=== PATIENT | male | born 1955 | race Caucasian/White ===

== ENCOUNTER 2016-05-05 15:59 | Inpatient (IN) | payer MEDICARE ==
[2016-05-05] MEDS ORDERED: Milk Of Magnesia 30 ML UDCUP PO PRN (16:52)
[2016-05-05] MEDS ORDERED: Acetaminophen 325 MG TAB PO PRN (16:52)
[2016-05-05] MEDS ORDERED: HYDROcodone/Acetaminophen 10/325 mg Tablet PO PRN (16:52)
[2016-05-05] MEDS ORDERED: Ondansetron ODT 4 MG TAB PO PRN (16:52)
[2016-05-05] MEDS ORDERED: Bisacodyl 10 MG SUPP PR PRN (16:52)
[2016-05-05] MEDS ORDERED: Zolpidem Tartrate 5 MG TAB PO PRN (16:52)
[2016-05-05] MEDS ORDERED: HYDROcodone/Acetaminophen 5/325 mg Tablet PO PRN (16:52)
[2016-05-05 17:03] VITALS: BMI 32.2
[2016-05-05] MEDS ORDERED: Dextrose 5% in Water 1,000 ML IV PRN (17:22)
[2016-05-05] MEDS ORDERED: Dextrose 50% Abboject 50 ML SYRINGE SLOW IVP PRN (17:22)
[2016-05-05] MEDS ORDERED: HumaLOG 300 UNITS/3 ML VIAL SC PRN ×2 (17:22)
[2016-05-05 17:47] LABS: #Basophils 0.2 thou/uL (0.0-0.2); #Eosinphils 0.2 thou/uL (0.0-0.7); #Lymphocytes 1.9 thou/uL (1.20-3.40); #Monocytes 1.2 thou/uL (0.11-0.59); #Neutrophils 10.3 thou/uL (1.40-6.50); %Basophils 1.4 % (0.0-1.0); %Eosinophils 1.4 % (0.0-10.0); %Lymphocytes 13.8 % (21.0-51.0); %Monocytes 8.7 % (0.0-10.0); %Neutrophils 74.7 % (42.0-75.0); Hemoglobin 15.7 g/dL (14.0-18.0); Mean Corpuscular HGB CONC 31.3 g/dL (32.0-36.0); Mean Corpuscular Hemoglobin 30.1 pg (27.0-31.0); Mean Corpuscular Volume 96.4 fl (80.0-94.0); Mean Platelet Volume 8.2 fL (7.4-10.4); Platelet Count 289 thou/uL (130-400); RBC Distribution Width 13.9 % (11.5-14.5); White Blood Cell (WBC) Count 13.7 thou/uL (4.8-10.8)
[2016-05-05 17:55] LABS: ALT (SGPT) 30 U/L (0-55); AST (SGOT) 32 U/L (5-34); Albumin 4.2 g/dL (3.4-4.8); Alkaline Phosphatase 76 U/L (40-150); Anion Gap 14 mmol/L (10-20); BUN (Urea Nitrogen) 23 mg/dL (8.4-25.7); Bilirubin, Total 0.6 mg/dL (0.2-1.2); Calc. Creatinine Clearance 46 mL/min (70-130); Calcium 10.1 mg/dL (7.8-10.44); Carbon Dioxide 27 mmol/L (23-31); Chloride 103 mmol/L (98-107); Estimated GFR-MDRD 34; Globulin 3.9 g/dL (2.4-3.5); Glucose 97 mg/dL (80-115); Potassium 5.3 mmol/L (3.5-5.1); Protein, Total 8.1 g/dL (5.8-8.1); Sodium 139 mmol/L (136-145)
[2016-05-05] MEDS ORDERED: Piperacillin/Tazobactam 3.375 GM in Sodium Chloride 0.9% 100 ML IVPB SCH (18:00)
[2016-05-05] MEDS: Piperacillin/Tazobactam 3.375 GM in Sodium Chloride 0.9% 100 ML IVPB SCH (20:22)
[2016-05-05] MEDS: Allopurinol 100 MG TAB PO SCH (20:30)
[2016-05-05] MEDS: Vancomycin HCl 1 GM in Sodium Chloride 0.9% 250 ML 250 ML IVPB SCH (21:09)
[2016-05-06] MEDS: Piperacillin/Tazobactam 3.375 GM in Sodium Chloride 0.9% 100 ML IVPB SCH ×4 (03:04→21:12)
[2016-05-06 05:16] LABS: #Basophils 0.2 thou/uL (0.0-0.2); #Eosinphils 0.3 thou/uL (0.0-0.7); #Lymphocytes 1.8 thou/uL (1.20-3.40); #Monocytes 1.1 thou/uL (0.11-0.59); #Neutrophils 8.1 thou/uL (1.40-6.50); %Basophils 1.5 % (0.0-1.0); %Eosinophils 2.2 % (0.0-10.0); %Lymphocytes 15.8 % (21.0-51.0); %Monocytes 9.3 % (0.0-10.0); %Neutrophils 71.2 % (42.0-75.0); Hemoglobin 14.7 g/dL (14.0-18.0); Mean Corpuscular HGB CONC 30.9 g/dL (32.0-36.0); Mean Corpuscular Hemoglobin 29.7 pg (27.0-31.0); Mean Corpuscular Volume 96.2 fl (80.0-94.0); Mean Platelet Volume 7.7 fL (7.4-10.4); Platelet Count 271 thou/uL (130-400); RBC Distribution Width 14.4 % (11.5-14.5); Red Blood Cell (RBC) Count 4.96 mill/uL (4.70-6.10); White Blood Cell (WBC) Count 11.4 thou/uL (4.8-10.8)
[2016-05-06 05:21] LABS: Anion Gap 13 mmol/L (10-20); BUN (Urea Nitrogen) 22 mg/dL (8.4-25.7); Calc. Creatinine Clearance 56 mL/min (70-130); Calcium 9.8 mg/dL (7.8-10.44); Carbon Dioxide 27 mmol/L (23-31); Chloride 103 mmol/L (98-107); Estimated GFR-MDRD 43; Glucose 97 mg/dL (80-115); Potassium 5.1 mmol/L (3.5-5.1); Sodium 138 mmol/L (136-145)
[2016-05-06] MEDS: Enoxaparin Sodium 40 MG/0.4 ML SYRINGE SC SCH (06:00)
[2016-05-06] MEDS ORDERED: FLU VACC QS2016-17 36MOS UP/PF 0.5 ML SYRINGE IM ONE (09:00)
[2016-05-06] MEDS: Allopurinol 100 MG TAB PO SCH ×2 (09:14→21:13)
[2016-05-06] MEDS: Lisinopril 20 MG TAB PO SCH (09:16)
[2016-05-06] MEDS: Vancomycin HCl 1 GM in Sodium Chloride 0.9% 250 ML 250 ML IVPB SCH ×2 (09:19→21:39)
[2016-05-06] MEDS: DICLOFENAC SODIUM 100 MG PO SCH (13:34)
[2016-05-07] MEDS: Piperacillin/Tazobactam 3.375 GM in Sodium Chloride 0.9% 100 ML IVPB SCH ×4 (02:56→20:03)
[2016-05-07] MEDS: Enoxaparin Sodium 40 MG/0.4 ML SYRINGE SC SCH (05:23)
[2016-05-07] MEDS ORDERED: Bacitracin Zinc 1 Packet ONE ×2 (07:35)
[2016-05-07 08:34] LABS: Vancomycin, Trough 15.9 ug/mL
[2016-05-07] MEDS: Allopurinol 100 MG TAB PO SCH ×2 (09:44→21:22)
[2016-05-07] MEDS: Lisinopril 20 MG TAB PO SCH (09:46)
[2016-05-07] MEDS: DICLOFENAC SODIUM 100 MG PO SCH (09:47)
[2016-05-07] MEDS: Vancomycin HCl 1 GM in Sodium Chloride 0.9% 250 ML 250 ML IVPB SCH ×2 (10:24→21:23)
--- NOTE | 2016-05-07 19:11 | OP ---
DATE OF SURGERY: 05/07/2016 PRIMARY CARE PHYSICIAN: Sabrina Santana D.O. PREOPERATIVE DIAGNOSES: Right knee cellulitis with abscess. POSTOPERATIVE DIAGNOSIS: Right knee cellulitis with abscess. PROCEDURE: Incision and drainage of abscess. Procedure Note: Time out protocol was performed prior to initiating the procedure. The area was pr epped and draped in the usual sterile fashion. The area was anesthetized with 2% lidocaine without epinephrine. Linear incision along the local skin line was made and purulent material expressed. T he abscess was explored. No pockets were noted. Bleeding was minimal. No packing done. The patie nt tolerated the procedure. Standard postprocedure care given.
--- NOTE | 2016-05-07 19:15 | PRG ---
DATE OF SERVICE: 05/07/2016 PRIMARY CARE PHYSICIAN: Dr. Santana. SUBJECTIVE: The patient is complaining of right knee pain, still has tenderness on the anterior knee; however, noticed less swelling and redness, still has little purulent drainage coming from a small opening. Patient has a 4 cm fluctuant purulent fluid mass on the superficial area of the right knee. No fever, no chills. OBJECTIVE: VITAL SIGNS: Blood pressure of 131/64, pulse of 54, respiratory rate of 18, and 02 sat 98% on room air. Temperature of 98.1. GENERAL: Patient is alert, oriented, not in respiratory distress. HEENT: Normocephalic, atraumatic. Pupils equally reactive to light. NECK: Supple. Negative for lymphadenopathies. CHEST AND LUNGS: Symmetrical expansion. Clear to auscultation. HEART: Regular rate and rhythm. Negative for murmur. ABDOMEN: Flat, soft, nontender, normoactive bowel sounds. EXTREMITIES: Right knee has an area of erythema, measuring about 6 x 10 cm, purulent filled mass measuring about 4 cm, very tender. Good range of motion. Negative for Homans' sign. LABORATORY DATA: Reviewed. ASSESSMENT: 1. Right knee cellulitis with abscess secondary to insect bite. 2. Hypertension. 3. Diabetes, on sliding scale. 4. Hyperlipidemia. 5. Gastroesophageal reflux disease. 6. Morbid obesity. PLAN: 1. Perform I&D, indication abscess. 2. Continue IV antibiotics. 3. Anticipate discharge within the next 2 days. 4. Adjust antibiotics depending on the results of the wound culture. VER[place]
[2016-05-08] MEDS: Piperacillin/Tazobactam 3.375 GM in Sodium Chloride 0.9% 100 ML IVPB SCH ×4 (02:52→20:04)
[2016-05-08] MEDS: Enoxaparin Sodium 40 MG/0.4 ML SYRINGE SC SCH (06:04)
[2016-05-08] MEDS: Allopurinol 100 MG TAB PO SCH ×2 (09:22→21:33)
[2016-05-08] MEDS: Lisinopril 20 MG TAB PO SCH (09:24)
[2016-05-08] MEDS: DICLOFENAC SODIUM 100 MG PO SCH (09:25)
[2016-05-08] MEDS: Vancomycin HCl 1 GM in Sodium Chloride 0.9% 250 ML 250 ML IVPB SCH ×2 (09:55→21:34)
[2016-05-08 20:30] LABS: Vancomycin, Trough 21.5 ug/mL
--- NOTE | 2016-05-08 21:35 | PRG ---
DATE OF SERVICE: 05/08/2016 PRIMARY CARE PHYSICIAN: Sabrina Santana D.O. ATTENDING PHYSICIAN: Sloane Malave M.D. SUBJECTIVE: The patient reports improved right knee pain, some localized tenderness, no fever, no chills, the patient is anticipating to go home this afternoon. OBJECTIVE: VITAL SIGNS: Blood pressure of 126/72, temperature of 97.8, pulse of 50, respiratory rate of 18, O2 sat 99% at room air. GENERAL: The patient is alert, oriented, not in respiratory distress. HEENT: Normocephalic, atraumatic. Pupils equally reactive to light. NECK: Supple. Negative for lymphadenopathy. CHEST AND LUNGS: Symmetrical expansion. Clear to auscultation. HEART: Regular rate and rhythm. EXTREMITIES: Right knee has less erythema, good range of motion, upon palpating noticed 3 small openings were purulent discharge came out. LABORATORY DATA: Reviewed. Wound cultures showing Staphylococcus aureus, pending sensitivities. ASSESSMENT AND PLAN: 1. Right knee cellulitis with abscess secondary to Staphylococcus aureus, status post I&D, postop day #1 still has small amount of purulent discharge from 3 small openings. No induration, no fluctuance noted, minimal tenderness. 2. Continue IV antibiotics, start warm water flushing 15 minutes 3 times a day. 3. Continue antibiotics, adjust medications depending on the sensitivities. 4. Hypertension, stable. 6. Diabetes on sliding scale, stable. 7. Hyperlipidemia. 8. Gastroesophageal reflux disease. 9. Morbid obesity. 10. Anticipate discharge in the next [address] [facility]
[2016-05-09] MEDS: Piperacillin/Tazobactam 3.375 GM in Sodium Chloride 0.9% 100 ML IVPB SCH ×4 (03:25→20:55)
[2016-05-09] MEDS: Enoxaparin Sodium 40 MG/0.4 ML SYRINGE SC SCH (05:55)
[2016-05-09 08:03] LABS: #Basophils 0.1 thou/uL (0.0-0.2); #Eosinphils 0.3 thou/uL (0.0-0.7); #Lymphocytes 2.5 thou/uL (1.20-3.40); #Monocytes 0.7 thou/uL (0.11-0.59); #Neutrophils 6.1 thou/uL (1.40-6.50); %Basophils 1.2 % (0.0-1.0); %Eosinophils 3.6 % (0.0-10.0); %Lymphocytes 25.4 % (21.0-51.0); %Monocytes 6.9 % (0.0-10.0); %Neutrophils 62.9 % (42.0-75.0); Hemoglobin 16.7 g/dL (14.0-18.0); Mean Corpuscular HGB CONC 32.9 g/dL (32.0-36.0); Mean Corpuscular Hemoglobin 31.6 pg (27.0-31.0); Mean Corpuscular Volume 96.2 fl (80.0-94.0); Mean Platelet Volume 7.4 fL (7.4-10.4); Platelet Count 320 thou/uL (130-400); RBC Distribution Width 13.7 % (11.5-14.5); Red Blood Cell (RBC) Count 5.28 mill/uL (4.70-6.10); White Blood Cell (WBC) Count 9.7 thou/uL (4.8-10.8)
[2016-05-09 08:17] LABS: ALT (SGPT) 24 U/L (0-55); AST (SGOT) 19 U/L (5-34); Alkaline Phosphatase 66 U/L (40-150); Anion Gap 14 mmol/L (10-20); BUN (Urea Nitrogen) 20 mg/dL (8.4-25.7); Bilirubin, Total 0.7 mg/dL (0.2-1.2); Calc. Creatinine Clearance 61 mL/min (70-130); Calcium 10.1 mg/dL (7.8-10.44); Carbon Dioxide 28 mmol/L (23-31); Chloride 103 mmol/L (98-107); Estimated GFR-MDRD 47; Globulin 3.6 g/dL (2.4-3.5); Glucose 109 mg/dL (80-115); Potassium 5.2 mmol/L (3.5-5.1); Protein, Total 7.6 g/dL (5.8-8.1); Sodium 140 mmol/L (136-145)
[2016-05-09] MEDS: Vancomycin HCl 1 GM in Sodium Chloride 0.9% 250 ML 250 ML IVPB SCH (08:55)
[2016-05-09] MEDS: Allopurinol 100 MG TAB PO SCH ×2 (08:59→20:53)
[2016-05-09] MEDS: DICLOFENAC SODIUM 100 MG PO SCH ×2 (09:00→13:00)
[2016-05-09] MEDS: Lisinopril 20 MG TAB PO SCH (09:00)
[2016-05-09 20:30] LABS: Vancomycin, Trough 26.7 ug/mL
[2016-05-10] MEDS: Piperacillin/Tazobactam 3.375 GM in Sodium Chloride 0.9% 100 ML IVPB SCH ×2 (03:10→08:53)
[2016-05-10] MEDS: Enoxaparin Sodium 40 MG/0.4 ML SYRINGE SC SCH (06:15)
[2016-05-10 06:24] VITALS: TEMP 97.7
[2016-05-10] MEDS: Vancomycin HCl 1 GM in Sodium Chloride 0.9% 250 ML 250 ML IVPB SCH (08:35)
[2016-05-10] MEDS: Allopurinol 100 MG TAB PO SCH (08:54)
[2016-05-10] MEDS: Lisinopril 20 MG TAB PO SCH (08:55)
[2016-05-10 08:56] VITALS: BP 126/72
[2016-05-10] MEDS: DICLOFENAC SODIUM 100 MG PO SCH (08:56)
--- NOTE | 2016-05-10 18:34 | DIS ---
DATE OF ADMISSION: 05/05/2016 DATE OF DISCHARGE: 05/10/2016 ADMISSION DIAGNOSES: Abscess and cellulitis to the right lower extremity. DISCHARGE DIAGNOSES: Abscess and cellulitis to the right lower extremity, methicillin-resistant Staphylococcus aureus. COMORBID DIAGNOSES: 1. Hypertension. 2. Ankylosing spondylitis. 3. Diet-controlled diabetes mellitus. 4. Stage 3 CKD ATTENDING PHYSICIAN: Sabrina Santana D.O. PROCEDURES PERFORMED: 1. Blood cultures x2 from the date of admission negative at 48 hours. 2. Wound culture growing methicillin-resistant Staphylococcus aureus on the date of discharge with sensitivities to doxycycline. 3. CBC from the date of admission with white count 13.7, down to 9.7 on the day prior to discharge. 4. Chemistry profile remarkable for improvement in creatinine from 1.99 on admission to 1.51 the day prior to discharge. 5. I&D, Dr. Malave, 05/08/16 HISTORY AND PHYSICAL EXAMINATION: Please see documented report from the date of admission. HOSPITAL COURSE: Mr. Jarrell is a 60-year-old male with past medical history of diet-controlled diabetes mellitus, ankylosing spondylitis, stage 3 CKD and hypertension who presented to the outpatient setting, status post ant bite. He was treated with a gram of Rocephin intramuscularly in the office and placed on Bactrim DS 1 p.o. b.i.d. as it looked to be infected. The patient returned to the clinic in approximately 48 hours with expanding erythema, swelling to the distal aspect of the leg, increasing induration in the area, located just below the knee in the right lower extremity. He was admitted and placed on IV antibiotic therapy, Zosyn and vancomycin. An area was outlined to show progress. The patient was given pain control. His wound was elevated and warm compresses were administered 3 times daily. Throughout his hospital stay, the distal redness and edema, improved. The patient's vancomycin troughs were monitored and dose adjusted according to protocol. On 05/08, procedure was performed with drainage of purulent material from the area of induration. This was cultured and subsequently grew out methicillin-resistant Staph aureus with sensitivities to the failed outpatient Bactrim therapy, clindamycin and doxycycline. The patient has had some intermittent diarrhea throughout his hospital course, but nothing of notable attention. This did not cause any discomfort. Therefore, the patient now could be discharged on oral doxycycline therapy twice daily for 10 days and will add a probiotic of Floranex 1 gram daily. He will see me in clinic in approximately 3 days for reevaluation. He has been given instructions to return for fever, increased redness, increased swelling, pain or drainage from the site. He will still apply warm compresses 3 times daily for 15 minutes to help resolve healing and elevate the extremity. Regarding his diabetes, the patient was placed on a diabetic diet, Accu-Cheks were monitored. He was placed on an insulin lispro sliding scale mild and bedtime protocol during his hospitalization. Regarding his hypertension, the patient was continued on his home antihypertensive regimen with his blood pressure stable throughout his hospitalization. No changes were made. On the date of discharge, the patient's temperature is 97.7, heart rate 53, blood pressure 126/72, respirations 18, O2 sat 99% on room air and blood pressure 147/67. He is alert and oriented x3, in no acute distress. His pupils were equal, round and reactive to light and accommodation with extraocular muscles intact. HEART: Regular rate and rhythm with no murmurs, clicks, rubs or gallops. LUNGS: Clear to auscultation bilaterally. No crackles or wheezes. ABDOMEN: Positive bowel sounds in all four quadrants. Soft, nontender and nondistended. EXTREMITIES: No cyanosis, clubbing or edema. The right lower extremity wound measures approximately half an inch in diameter with a couple of pores present with no fluctuance. Minimal surrounding edema, erythema and no induration seen. DISPOSITION: Discharged to home. CONDITION: Good. DISCHARGE MEDICATIONS: 1. Diclofenac ER 100 mg p.o. q.a.m. 2. Allopurinol 300 mg p.o. q.a.m. and 200 mg p.o. at bedtime. 3. Amlodipine 5 mg p.o. q. day. 4. Zestril 20 mg p.o. q.a.m. 5. Toprol XL 50 mg p.o. q. day. 6. Crestor 10 mg p.o. q.p.m. 7. Doxycycline 100 mg p.o. b.i.d. x10 days. 8. Floranex 1 gram p.o. q. day x10 days. FOLLOWUP: Will be with Dr. Sabrina Santana in my clinic on Monday. [facility]
== END 2016-05-10 10:30 | disposition home or self-care (01) | DRG 603 ==
LOC: BURMED 16:00
PROVIDERS: ADMIT Family Medicine; ATTEND Family Medicine
PROC: 0H9KXZZ Drainage of Right Lower Leg Skin, External Approach (ICD-10-PCS; principal; 2016-05-07)
DX: L03.115 Cellulitis of right lower limb (principal); E11.22 Type 2 diabetes mellitus with diabetic chronic kidney disease; N18.3 Chronic kidney disease, stage 3 (moderate); L02.415 Cutaneous abscess of right lower limb; W57.XXXA Bitten or stung by nonvenomous insect and other nonvenomous arthropods, initial encounter; B95.62 Methicillin resistant Staphylococcus aureus infection as the cause of diseases classified elsewhere; I12.9 Hypertensive chronic kidney disease with stage 1 through stage 4 chronic kidney disease, or unspecified chronic kidney disease; E78.5 Hyperlipidemia, unspecified; E66.01 Morbid (severe) obesity due to excess calories; K21.9 Gastro-esophageal reflux disease without esophagitis; Z68.32 Body mass index [BMI] 32.0-32.9, adult
CPT/HCPCS: 36415; 36416; 80048; 80053; 80202; 83605; 85025; 87040; 87070; 87077; 87186; 87205; A4216; J1650; J2001; J2543; J3370; J7050

== ENCOUNTER 2016-08-31 05:36 | Outpatient (CLI) | payer MEDICARE ==
[2016-08-31 06:07] LABS: Bilirubin Negative (Negative); Blood, Urine Negative (Negative); Clarity Clear (Clear); Glucose, Urine (Dipstick) Negative (Negative); Leukocyte Negative (Negative); Nitrite Negative (Negative); Protein, Urine (Dipstick) Negative (Neg-Trace); Urobilinogen 0.2 mg/dL (0.2-1.0)
[2016-08-31 06:13] LABS: Bacteria/HPF Rare-Few HPF (None Seen); RBC/HPF 0-3 HPF (0-3); Squamous Epithelial 0-3 HPF (0-3); WBC/HPF 0-3 HPF (0-3)
[2016-08-31 06:27] LABS: Anion Gap 15 mmol/L (10-20); BUN (Urea Nitrogen) 17 mg/dL (8.4-25.7); Calc. Creatinine Clearance 0 mL/min (70-130); Calcium 9.5 mg/dL (7.8-10.44); Carbon Dioxide 24 mmol/L (23-31); Chloride 107 mmol/L (98-107); Estimated GFR-MDRD 62; Glucose 132 mg/dL (80-115); Potassium 4.4 mmol/L (3.5-5.1); Sodium 142 mmol/L (136-145)
== END 2016-08-31 05:37 | disposition home or self-care (01) ==
LOC: BURLAB 05:36
PROVIDERS: ATTEND Urology
DX: Z12.5 Encounter for screening for malignant neoplasm of prostate (principal); N18.9 Chronic kidney disease, unspecified; N40.1 Benign prostatic hyperplasia with lower urinary tract symptoms
CPT/HCPCS: 36415; 80048; 81001; 87086; G0103

== ENCOUNTER 2016-11-09 10:15 | Outpatient (CLI) | payer MEDICARE ==
[2016-11-09 12:00] LABS: #Basophils 0.1 thou/uL (0.0-0.2); #Eosinphils 0.2 thou/uL (0.0-0.7); #Lymphocytes 2.4 thou/uL (1.20-3.40); #Monocytes 0.8 thou/uL (0.11-0.59); %Basophils 0.9 % (0.0-1.0); %Eosinophils 1.7 % (0.0-10.0); %Lymphocytes 23.1 % (21.0-51.0); %Monocytes 7.6 % (0.0-10.0); %Neutrophils 66.7 % (42.0-75.0); Hemoglobin 16.5 g/dL (14.0-18.0); Mean Corpuscular HGB CONC 31.1 g/dL (32.0-36.0); Mean Corpuscular Hemoglobin 30.4 pg (27.0-31.0); Mean Corpuscular Volume 97.9 fl (80.0-94.0); Mean Platelet Volume 8.4 fL (7.4-10.4); Platelet Count 228 thou/uL (130-400); RBC Distribution Width 14.1 % (11.5-14.5); Red Blood Cell (RBC) Count 5.42 mill/uL (4.70-6.10); White Blood Cell (WBC) Count 10.5 thou/uL (4.8-10.8)
[2016-11-09 12:54] LABS: ALT (SGPT) 31 U/L (8-55); AST (SGOT) 21 U/L (5-34); Albumin 4.6 g/dL (3.4-4.8); Alkaline Phosphatase 74 U/L (40-150); Anion Gap 18 mmol/L (10-20); BUN (Urea Nitrogen) 24 mg/dL (8.4-25.7); Bilirubin, Total 1.1 mg/dL (0.2-1.2); Calc. Creatinine Clearance 0 mL/min (70-130); Calcium 9.9 mg/dL (7.8-10.44); Carbon Dioxide 25 mmol/L (23-31); Cardiac Risk 3.9 (Less than 4.5); Chloride 103 mmol/L (98-107); Cholesterol 132 mg/dl (< 200 Desired); Estimated GFR-MDRD 59; Globulin 2.6 g/dL (2.4-3.5); Glucose 109 mg/dL (80-115); HDL Cholesterol 34 mg/dL (>60 Neg Risk); Hemoglobin A1c 6.2 % (4.0-6.0); LDL Cholesterol, Calculated 77 mg/dL; Potassium 4.9 mmol/L (3.5-5.1); Protein, Total 7.2 g/dL (5.8-8.1); Sodium 141 mmol/L (136-145); Triglycerides 104 mg/dL (Less than 150)
[2016-11-09 17:54] LABS: Creatinine, Urine 146.47 mg/dL (63-166); Microalbumin Urine Less than 1.0 mg/dL (0.5-50.0); Microalbumin/Creat Ratio 6.8 mg/g (Less than 30)
== END 2016-11-09 10:16 | disposition home or self-care (01) ==
LOC: HPCALD 10:15
PROVIDERS: ATTEND Family Medicine
DX: E11.9 Type 2 diabetes mellitus without complications (principal); I10 Essential (primary) hypertension
CPT/HCPCS: 80053; 80061; 82043; 83036; 84443; 85025

== ENCOUNTER 2018-04-12 19:02 | Emergency (ER) | payer MEDICARE ==
[2018-04-12] MEDS ORDERED: Fluorescein Opthalmic Strip ONE (19:21)
== END 2018-04-12 19:50 | disposition home or self-care (01) ==
LOC: BURERS 19:02
DX: S05.02XA Injury of conjunctiva and corneal abrasion without foreign body, left eye, initial encounter (principal); M06.9 Rheumatoid arthritis, unspecified; X58.XXXA Exposure to other specified factors, initial encounter
CPT/HCPCS: 99283

== ENCOUNTER 2019-01-03 08:16 | Outpatient (CLI) | payer MEDICARE ==
--- NOTE | 2019-01-03 16:56 | RAD ---
CERVICAL SPINE TWO VIEWS: 01/03/19 AP and lateral views are provided. There is fusion of the cervical spine at all levels consistent wit h the history of ankylosing spondylitis. No acute fracture was appreciated. The soft tissues are norm al in thickness. IMPRESSION: Cervical fusion without focal findings of concern. POS: HOME
--- NOTE | 2019-01-03 16:59 | RAD ---
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 There is wedging of one of the vertebra near the thoracolumbar junction, however, looking back at an 01/08/13 chest film, it wa s present previously. The degree of wedging has really not advanced over the years. No acute fracture s, dislocation or other acute change was appreciated. IMPRESSION: Ankylosing spondylitis with no acute findings. Wedged vertebra near the thoracolumbar junction that h as not changed over the last six years. POS: HOME
--- NOTE | 2019-01-03 17:01 | RAD ---
LUMBAR SPINE THREE VIEWS: 01/03/19 Mild scoliosis convexed right is present. There is anterior wedging of the L1 vertebra, but this is not acute and has been present for some years. No acute fracture was appreciated. There is fusion at multiple levels as expected. The SI joints are obliterated. IMPRESSION: Typical findings of ankylosing spondylitis without acute change. POS: HOME
--- NOTE | 2019-01-03 17:02 | RAD ---
SI JOINTS 01/03/19 The sacroiliac joints are fused bilaterally consistent with the clinical history of ankylosing spondy litis. There is no undue sclerosis in the region at the moment. The visible portions of the bony pelv is appear intact. IMPRESSION: Fusion of each SI joint. POS: HOME
== END 2019-01-03 08:17 | disposition home or self-care (01) ==
LOC: BURRAD 08:16
PROVIDERS: ATTEND Internal Medicine Rheumatology
DX: M46.1 Sacroiliitis, not elsewhere classified (principal); M54.2 Cervicalgia; M54.5 Low back pain; M54.6 Pain in thoracic spine; M45.6 Ankylosing spondylitis lumbar region; M45.4 Ankylosing spondylitis of thoracic region; Z98.1 Arthrodesis status
CPT/HCPCS: 72040; 72072; 72100; 72202

== ENCOUNTER 2019-12-07 13:03 | Emergency (ER) | payer MEDICARE ==
[2019-12-07] MEDS ORDERED: Sulfameth/Trimethoprim DS 800-160mg TAB ONE (13:23)
[2019-12-07] MEDS ORDERED: Boostrix 0.5 ML VIAL ONE (13:24)
== END 2019-12-07 13:35 | disposition home or self-care (01) ==
LOC: BURERS 13:03
DX: L03.113 Cellulitis of right upper limb (principal); M06.9 Rheumatoid arthritis, unspecified; Z87.891 Personal history of nicotine dependence; Z79.899 Other long term (current) drug therapy
CPT/HCPCS: 90471; 90715

== ENCOUNTER 2021-03-03 08:52 | Emergency (ER) | payer MEDICARE ==
[2021-03-03] MEDS ORDERED: Aspirin Chewable 81 MG TAB ONE (09:58)
[2021-03-03 10:43] LABS: #Basophils 0.1 thou/uL (0.0-0.2); #Eosinphils 0.2 thou/uL (0.0-0.7); #Lymphocytes 1.8 thou/uL (1.20-3.40); #Monocytes 0.6 thou/uL (0.11-0.59); #Neutrophils 6.1 thou/uL (1.40-6.50); %Basophils 1.4 % (0.0-1.0); %Eosinophils 1.7 % (0.0-10.0); %Lymphocytes 20.8 % (21.0-51.0); %Monocytes 6.5 % (0.0-10.0); %Neutrophils 69.6 % (42.0-75.0); Hemoglobin 16.8 g/dL (14.0-18.0); Mean Corpuscular HGB CONC 32.2 g/dL (32.0-36.0); Mean Corpuscular Hemoglobin 30.3 pg (27.0-31.0); Mean Corpuscular Volume 94.2 fL (78.0-98.0); Mean Platelet Volume 9.5 fL (7.4-10.4); Platelet Count 203 thou/uL (130-400); RBC Distribution Width 14.1 % (11.5-14.5); Red Blood Cell (RBC) Count 5.55 mill/uL (4.70-6.10); White Blood Cell (WBC) Count 8.8 thou/uL (4.8-10.8)
[2021-03-03 11:05] LABS: ALT (SGPT) 20 U/L (8-55); AST (SGOT) 17 U/L (5-34); Albumin 4.3 g/dL (3.4-4.8); Alkaline Phosphatase 60 U/L (40-110); Anion Gap 14 mmol/L (10-20); BUN (Urea Nitrogen) 9 mg/dL (8.4-25.7); Bilirubin, Total 0.4 mg/dL (0.2-1.2); Calc. Creatinine Clearance 0 mL/min (70-130); Calcium 9.6 mg/dL (7.8-10.44); Carbon Dioxide 25 mmol/L (23-31); Chloride 104 mmol/L (98-107); Globulin 2.3 g/dL (2.4-3.5); Glucose 110 mg/dL (80-115); Potassium 4.1 mmol/L (3.5-5.1); Protein, Total 6.6 g/dL (5.8-8.1); Sodium 139 mmol/L (136-145)
[2021-03-03 14:17] LABS: Troponin I Less than 0.010 ng/mL (< 0.028)
[2021-03-03 22:53] LABS: Troponin I Less than 0.010 ng/mL (< 0.028)
== END 2021-03-03 23:49 | disposition home or self-care (01) ==
LOC: BURERS 08:52
DX: R07.9 Chest pain, unspecified (principal); I12.9 Hypertensive chronic kidney disease with stage 1 through stage 4 chronic kidney disease, or unspecified chronic kidney disease; N18.9 Chronic kidney disease, unspecified; E11.22 Type 2 diabetes mellitus with diabetic chronic kidney disease; K21.9 Gastro-esophageal reflux disease without esophagitis; M10.9 Gout, unspecified; F17.220 Nicotine dependence, chewing tobacco, uncomplicated
CPT/HCPCS: 36415; 71045; 80053; 83880; 84484; 85025; 93005

== ENCOUNTER 2023-08-04 19:20 | Emergency (ER) | payer MEDICARE ==
[2023-08-04] MEDS ORDERED: Sulfameth/Trimethoprim DS 800-160mg TAB ONE (19:55)
== END 2023-08-04 20:05 | disposition home or self-care (01) ==
LOC: BURERS 19:20
DX: L03.114 Cellulitis of left upper limb (principal); I12.9 Hypertensive chronic kidney disease with stage 1 through stage 4 chronic kidney disease, or unspecified chronic kidney disease; E11.22 Type 2 diabetes mellitus with diabetic chronic kidney disease; N18.9 Chronic kidney disease, unspecified; M10.9 Gout, unspecified; M06.9 Rheumatoid arthritis, unspecified; Z79.899 Other long term (current) drug therapy; Z87.891 Personal history of nicotine dependence
CPT/HCPCS: 99283

== ENCOUNTER 2023-10-15 06:35 | Emergency (ER) | payer MEDICARE ==
[2023-10-15] MEDS ORDERED: Sulfameth/Trimethoprim DS 800-160mg TAB ONE (07:23)
== END 2023-10-15 07:18 | disposition home or self-care (01) ==
LOC: BURERS 06:35
DX: H60.12 Cellulitis of left external ear (principal); I12.9 Hypertensive chronic kidney disease with stage 1 through stage 4 chronic kidney disease, or unspecified chronic kidney disease; E11.22 Type 2 diabetes mellitus with diabetic chronic kidney disease; N18.9 Chronic kidney disease, unspecified; K21.9 Gastro-esophageal reflux disease without esophagitis; Z79.82 Long term (current) use of aspirin; Z79.899 Other long term (current) drug therapy; Z87.891 Personal history of nicotine dependence
CPT/HCPCS: 99283